=== PATIENT | male | born 1985 | race Caucasian/White ===

== ENCOUNTER 2024-11-04 17:50 | Emergency (ER) | payer MEDICAID ==
[~2024-11-04] VITALS: Ht 162.6 cm; Wt 75.0 kg
[2024-11-04 17:54] VITALS: BP 93/69; PULSE 105; RESP 18; TEMP 36.5; O2SAT 97
[2024-11-04] MEDS ORDERED: AZIT250T12 MT (21:05)
[2024-11-04] MEDS ORDERED: TOPUD MT (21:05)
[2024-11-04] MEDS ORDERED: BUDE6HFA INH (21:05)
[2024-11-04] MEDS ORDERED: IBUP-1523 MT (21:05)
== END 2024-11-04 21:12 | disposition home or self-care (01) ==
LOC: ER 17:50
DX: J20.9 Acute bronchitis, unspecified (principal); J44.1 Chronic obstructive pulmonary disease with (acute) exacerbation; Z59.00 Homelessness unspecified; Z79.51 Long term (current) use of inhaled steroids; Z79.899 Other long term (current) drug therapy
CPT/HCPCS: 71045; 99283